=== PATIENT | male | born 1965 | race Two or more races ===

== ENCOUNTER 2024-10-21 10:12 | Emergency (ER) | payer OTHER ==
[~2024-10-21] VITALS: Ht 175.3 cm; Wt 81.2 kg
[~2024-10-21 10:12] MED LIST: NO TOMA MED.
[2024-10-21] MEDS ORDERED: 0.9 % SODIUM CHLORIDE 1,000 ML IV ONE (11:15)
[2024-10-21] MEDS ORDERED: KETOROLAC TROMETHAMINE 30 MG VIAL IV ONE (11:15)
[2024-10-21 12:01] LABS: BASO % 0.7 % (0.1-1.2); EOS # 1.16 (0.04-0.54); EOS % 7.1 % (0.7-7.0); LYMPH # 2.52 (1.18-3.74); LYMPH % 15.3 % (19.3-53.1); MEAN PLATELET VOLUME 9.40 fl (9.4-12.4); MONO # 1.31 (0.24-0.82); MONO % 8.0 % (4.7-12.5); NEUT # 11.27 (1.56-6.13); NEUT % 68.5 % (34.0-71.1); RED CELL DISTRIBUTION WIDTH 14.4 % (11.6-14.4)
[2024-10-21 12:29] LABS: INR 1.15
[2024-10-21 12:32] LABS: ALT/SGPT 61 U/L (12-78); AST/SGOT 59 U/L (15-37); BILIRUBIN TOTAL 0.34 mg/dL (0.3-1.2); BILIRUBIN,CONJUGATED < 0.10 mg/dL (0.0-0.2); BUN CREA RATIO 16 (7.0-25.0); CREATININE SERUM 0.90 mg/dL (0.70-1.30); GFR 86.98; GLOBULINA 4.4 G/DL (2.4-3.5); GLUCOSE FASTING 91 mg/dL (65-100); OSMOLALITY SERUM 278 MOSM/KG (275-295)
[2024-10-21] MEDS ORDERED: CEFTRIAXONE SODIUM 1,000 MG VIAL IV ONE (12:45)
[2024-10-21] MEDS ORDERED: CEFTRIAXONE SODIUM 1,000 MG VIAL ONE (12:53)
[2024-10-21] MEDS ORDERED: AZITHROMYCIN500 MG PO (14:08)
[2024-10-21] MEDS ORDERED: PEPCID AC20 MG PO (14:08)
== END 2024-10-21 14:23 | disposition home or self-care (01) ==
LOC: ER 10:12
PROVIDERS: General Practice
DX: R10.84 Generalized abdominal pain (principal); R14.0 Abdominal distension (gaseous); C80.1 Malignant (primary) neoplasm, unspecified; R63.4 Abnormal weight loss; E11.9 Type 2 diabetes mellitus without complications